=== PATIENT | female | born 1990 | race Two or more races ===

== ENCOUNTER 2016-05-31 09:11 | Inpatient (IN) | payer MEDICAID, OTHER ==
[2016-05-31] MEDS ORDERED: OXYTOCIN 10 UNITS/ML VIAL IM ONE (09:24)
[2016-05-31] MEDS ORDERED: MINERAL OIL 25 ML BOT ONE (09:29)
[2016-05-31] MEDS ORDERED: PUMP TUBING ONE (09:29)
[2016-05-31] MEDS ORDERED: OXYTOCIN IN LR 500 ML IV ONE ×2 (09:29→10:11)
[2016-05-31] MEDS ORDERED: LIDOCAINE Viscous 2% 15 ML UDCUP ONE (09:29)
[2016-05-31] MEDS ORDERED: LIDOCAINE 1% (PRES FREE) 30 ML VIAL ONE (09:29)
[2016-05-31] MEDS ORDERED: LIDOCAINE 1% (PRES FREE) 30 ML VIAL SUB-Q ONE (10:08)
[2016-05-31] MEDS ORDERED: LACTATED RINGERS 1,000 ML IV SCH (10:15)
[2016-05-31] MEDS ORDERED: LANOLIN 50 APPLIC/7G TUBE TP PRN (10:28)
[2016-05-31] MEDS ORDERED: DOCUSATE SODIUM 100 MG CAPSULE PO PRN (10:28)
[2016-05-31] MEDS ORDERED: ACETAMINOPHEN 325 MG TABLET PO PRN (10:28)
[2016-05-31] MEDS ORDERED: BENZOCAINE/MENTHOL 60 APPLIC/BOT TP PRN (10:28)
[2016-05-31] MEDS ORDERED: HYDROCODONE/ACETAMINOPHEN 5/325MG TABLET PO PRN (10:28)
[2016-05-31] MEDS ORDERED: CALCIUM CARBONATE 500 MG TAB.CHEW PO PRN (10:28)
--- NOTE | 2016-05-31 10:35 | PCMAN ---
OB Admission Note - History : 2 Term: 1 : 0 Abortions (S&E): 0 Livin EDC:: 05/31/16 Gestational Age (weeks): 40 Days (#/7): 0 Admit Cervical Dilation:: 7 Admit Cervical Effacement (%):: 95 Admit Station:: -1 Admit Presentaton:: vertex Membrane Status: Intact Labor Onset (Date): 05/31/16 Labor Onset (Time): 05:00 Contractions: Yes Contraction Frequency:: q2-3min Heart Rate:: 140 Status:: Category 1 EFW:: 8lbs Summary of Course:: Onset of care at 10wks x13 visits. course complicated by chlamydia diagnosis at 10wks with a negative test of cure; LSIL on pap, plans follow-up failed 1hr gtt and passed 3hr gtt. Otherwise has been uncomplicated. Total weight gain 8lbs, pre- BMI-36.7. - Labs Blood Type: O (+) positive Hct/Hgb:: 11.2 Rubella Status: Immune GBS Status: Negative Abnormal Labs: Chlamydia Positive Other Labs:: Pos chlamydia at 10wks GA. Negative test of cure. Failed 1hr gtt, passed 3hr gtt. - Review of Systems Reports onset of contractions last night and they became more painful at 0500 today. Also reports bloody show. Denies decreased movement and SROM. - Physical Exam General: Afebrile Psych/Mental Status: Mood/Affect Appropriate, Other (working hard through contractions) Genitourinary: Normal Female Genitalia Extremities: Full ROM Skin: Normal Color - Problems (1) Active labor at term Status: Acute Assessment/Plan: A: 25yo at 40w0d Active labor at term Fetus Category [address] in early , test of cure neg LSIL pap P: Admit to [facility] once Category 1 strip is obtained IM pit for active management Anticipate rapid *Note completed after delivery due to fast labor progression
--- NOTE | 2016-05-31 10:43 | PCMDEL ---
Delivery Note - Labor 1st stage (hr/min):: 4h33m 2nd stage (hr/min):: 4m 3rd stage (hr/min):: 14m Total (hr/min):: 4h51m Pushed (hr/min):: 4m - Delivery Delivery (Date): 05/31/16 Delivery (Time): 09:37 Infant Gender: Female Presentation: Cephalic Position: OA Umbilical Cord: 3 Vessel Delayed Cord Clamping:: 2-3 min 1 Minute Total: 9 5 Minute Total: 9 Placenta:: intact, shultze EBL:: 850 Perineum:: 1st degree lac, repaired Suture:: 3-0 vicryl Anesthesia/Meds:: no labor meds, lidocaine for repair Length ROM:: 4m Comments:: Pt progressed quickly through active labor. Category 1 FHTs throughout. Pushed well in semi-fowlers. No clear SROM during labor or pushing, very little fluid after delivery of body. Achieved of a viable female (Apgars 9/9) over a 1st degree laceration. Head born direct OA with quick delivery of body, head did not restitute. Baby placed on maternal abdomen for drying and stimulation. Delayed cord clamping x3 minutes, then cut by FOB. IM pit given for active management of 3rd stage due to rapid labor. Brisk bleeding noted at introitus. A large blood clot delivered just before the placenta, then the placenta delivered intact and Shultze. Fundus firmed with massage at the umbilicus. 1st degree perineal laceration repaired with 3-0 vicryl under licodcaine anesthesia to good approximation and hemostasis. Additional clots expressed with next fundal check. IV placed and IV pitocin initiated. At time of note [id number]. Pt's vital signs are stable and she remains asymptomatic. Baby to breast within 30 minutes of . Will continue to monitor bleeding closely.
[2016-05-31] MEDS ORDERED: IV START KIT ONE (11:41)
[2016-05-31] MEDS ORDERED: LACTATED RINGERS 1,000 ML ONE (11:41)
[2016-05-31] MEDS: IBUPROFEN 800 MG TABLET PO SCH ×2 (11:45→19:45)
[2016-05-31 13:07] VITALS: BMI 39.4
[2016-06-01] MEDS: IBUPROFEN 800 MG TABLET PO SCH ×2 (02:16→13:19)
[2016-06-01 09:34] LABS: HEMATOCRIT 28.8 % (37.0-47.0); HEMOGLOBIN 8.9 gm/l (12.0-16.0)
--- NOTE | 2016-06-01 11:11 | PDOC39B ---
<TyreseDottie Quezada - Last Filed: 06/01/16 09:07> Hospital Course: ADMIT DATE: 05/31/16 DISCHARGE DATE: [06/01/16] ADMISSION DIAGNOSES: [active labor] PROCEDURES: [none] HISTORY OF PRESENT ILLNESS: 25 year old G2 T1 L1 at 40 weeks 0 days presenting with active labor, progressed rapidly to complete and achieved a . Clots expressed before and after delivery of the placenta, EBL was 850, H& H pending, patient is currently asymptomatic. 1st degree laceration was repaired in the usual fashion. HOSPITAL COURSE: The patient is one day and planning discharge today. She is ambulating, eating, voiding, and passing flatus without difficulty. Pain is controlled and lochia is appropriate. She is exclusively her baby girl, Marguerite, and reports no pain or or trauma with feeding. She attempted her previous child and had some difficulty due to a short frenulum. This baby has been assessed and Anastasia knows to call the midwives or BABIES clinic early on if becomes challenging. Has lots of family support. Feels positive about even though she was surprised at how fast it was. P: Reviewed normal course, comfort measures for nursing, and danger signs of thrombophebilitis, infection, PPH, and depression. Order ibuprofen Rx H&H pending return to care with midwives at 2 wk and 6 wk Reviewed recommendation for no intercourse and pelvic rest for at least 6 weeks , Patient plans Nexplanon at 6 weeks CINDY Gutierrez - Physical Exam Vital Signs: Temp Pulse Resp BP Pulse Ox 99.0 F 88 16 117/65 06/01/16 08:22 06/01/16 08:22 06/01/16 08:22 06/01/16 08:22 General: Afebrile Psych/Mental Status: Mood/Affect Appropriate Neurological: Oriented x 4 Lungs: Clear to Auscultation Bilaterally Cardiovascular: Regular Rate and Rhythm Breast: Soft, Skin intact, Nipples Intact Fundus: Firm, Below Umbilicus (1 fb below) Genitourinary: Normal Female Genitalia (1st degree, laceration edges well approximated) Lochia: Moderate - Discharge Diagnosis (1) (normal spontaneous vaginal delivery) Status: Acute - Discharge Plan Condition: Good Disposition: Home Instruction Forms: Vaginal Discharge Instructions Additional Instructions: Midwifery 'After the ' handout given to patient. Prescriptions: Ibuprofen [IBUPROFEN 800 MG TABLET (SHF)] 800 mg PO Q6H PRN #30 tablet PRN Reason: Pain (Moderate) Follow-Up: Will Schreiber CNM [Certified Nurse Soldering Machine Operator] - In 2 weeks <Ally Lemus - Last Filed: 06/01/16 11:10> Hospital Course: ADMIT DATE: 05/31/16 DISCHARGE DATE: [] ADMISSION DIAGNOSES: [] PROCEDURES: [] HISTORY OF PRESENT ILLNESS: 25 year old G2 T1 L1 at 40 weeks 0 days presenting with [] HOSPITAL COURSE: The patient [] By day of discharge the patient is ambulating, eating, voiding, and passing flatus without difficulty. Pain is controlled and lochia is appropriate. She is [] - Physical Exam Vital Signs: Temp Pulse Resp BP Pulse Ox 99.0 F 88 16 117/65 06/01/16 08:22 06/01/16 08:22 06/01/16 08:22 06/01/16 08:22
[2016-06-01 14:22] VITALS: BP 113/63
== END 2016-06-01 15:13 | disposition home or self-care (01) | DRG 775 ==
LOC: FBCOUT 09:11 → FBC 09:11 → FBCOUT 09:23 → FBC 09:23
PROVIDERS: ADMIT Registered Nurse; ATTEND Registered Nurse
PROC: 10E0XZZ Delivery of Products of Conception, External Approach (ICD-10-PCS; principal; 2016-05-31)
PROC: 0HQ9XZZ Repair Perineum Skin, External Approach (ICD-10-PCS; 2016-05-31)
DX: O28.2 Abnormal cytological finding on antenatal screening of mother (principal); O70.0 First degree perineal laceration during delivery; O62.3 Precipitate labor; Z86.19 Personal history of other infectious and parasitic diseases; Z3A.40 40 weeks gestation of pregnancy; Z37.0 Single live birth